=== PATIENT | male | born 1970 | race Caucasian/White ===

== ENCOUNTER 2018-05-14 14:04 | Inpatient (IN) | payer OTHER ==
[~2018-05-14] VITALS: Ht 177.8 cm; Wt 183.9 kg
[2018-05-14] MEDS ORDERED: OMEPRAZOLE MAGN20 MG PO (14:23)
[2018-05-14] MEDS ORDERED: LISI20 PO (14:23)
[2018-05-14] MEDS ORDERED: BUPR75 PO (14:23)
[2018-05-14 15:28] LABS: Source, Urine Clean Catch
[2018-05-14 15:33] LABS: Bilirubin, Urine Neg (Neg); Blood, Urine 1+ (Neg); Glucose Qualitative, Urine Neg (Neg); Ketones, Urine Neg (Neg); Leukocyte Esterase, Urine 1+ (Neg); Nitrite, Urine Neg (Neg); Protein, Urine 1+ (Neg); Specific Gravity, Urine 1.015 (1.003-1.022); Urobilinogen, Urine 1+ (Normal)
[2018-05-14 15:56] LABS: Appearance, Urine Clear (Clear); Color, Urine Yellow (P-Yellow)
[2018-05-14 15:58] LABS: Bacteria Few /hpf; Squamous Epithelial Cells Rare /hpf (Few)
--- NOTE | 2018-05-15 04:05 | NUR ---
SHIFT SUMMARY PT HAS RESTED MOST OF THE NIGHT, AND HAS DENIED NEEDS. CELLULITIS TO BLE. LEFT LEG MORE SWOLLEN THAN RIGHT. BOTH LEGS OUTLINE WITH SHARPIE. LEGS WITH SCATTERED SCABS, BLISTERS THAT APPEARS TO HAVE CRUSTED OVER. NO DRAINAGE PRESENT. PICTURES IN CHART. IV ABX INFUSED PER ORDERS. NS INFUSING X1 LITER AT THIS TIME. PT INDEPEDENT IN THE ROOM. NO ACUTE CHANGES. WILL CONTINUE TO MONITOR AND REPORT TO ONCOMING RN.
[2018-05-15 05:46] LABS: BASOPHILS ABSOLUTE AUTO 0.04 K/mm3 (0.00-0.23); BASOPHILS PERCENT AUTO 0 % (0-2); EOSINOPHILS ABSOLUTE AUTO 0.04 K/mm3 (0.00-0.68); EOSINOPHILS PERCENT AUTO 0 % (0-6); Hematocrit 39.5 % (37.0-53.0); Hemoglobin 12.5 g/dL (13.5-17.5); IMMATURE GRAN ABSOLUTE AUTO 0.13 K/mm3 (0.00-0.10); IMMATURE GRAN PERCENT AUTO 1 % (0-1); LYMPHOCYTES PERCENT AUTO 7 % (21-46); MONOCYTES ABSOLUTE AUTO 0.58 K/mm3 (0.16-1.47); MONOCYTES PERCENT AUTO 4 % (4-13); Mean Corpuscular HGB 27.3 pg (26.0-34.0); Mean Corpuscular HGB Conc 31.6 g/dL (31.5-36.5); Mean Corpuscular Volume 86 fL (80-100); Mean Platelet Volume 9.4 fL (9.1-12.4); NEUTROPHILS ABSOLUTE AUTO 11.92 K/mm3 (1.96-9.15); NEUTROPHILS PERCENT AUTO 87 % (41-73); Platelet Count 237 K/mm3 (150-400); RDW Coefficient Variation 15.6 % (11.7-14.2); RDW Standard Deviation 49.4 fL (35.1-46.3); Red Blood Cell Count 4.58 M/mm3 (4.30-5.90); White Blood Cell Count 13.71 K/mm3 (4.00-11.30)
[2018-05-15 06:14] LABS: Alanine Aminotransfer (ALT/SGP 34 U/L (12-78); Albumin/Globulin Ratio 0.7 (0.8-1.8); Alk Phos 55 U/L (50-136); Anion Gap 10 mmol/L (6-16); Aspartate Aminotrans (AST/SGOT 32 U/L (12-37); Bilirubin, Total 0.4 mg/dL (0.1-1.0); Blood Urea Nitrogen 15 mg/dL (8-24); Bun/Creatinine Ratio 13.5 (12.0-20.0); CHOL/HDL RATIO 3.1; CO2, Blood 23 mmol/L (21-32); Calcium, Blood 8.1 mg/dL (8.5-10.1); Chloride, Blood 106 mmol/L (98-108); Cholesterol 118 mg/dL (50-200); Creatinine, Blood 1.11 mg/dL (0.60-1.20); Globulin, Blood 4.2 g/dL (2.2-4.0); Glomerular Filtration Rate >60 (60-); Glucose, Blood 121 mg/dL (70-99); HDL Cholesterol 38 mg/dL (>39); LDL/HDL RATIO 1.3; Low Density Lipoprotein Chol 50 mg/dL (0-110); Magnesium, Blood 2.1 mg/dL (1.6-2.4); Potassium, Blood 4.5 mmol/L (3.5-5.5); Sodium, Blood 139 mmol/L (136-145); Total Protein, Blood 7.2 g/dL (6.4-8.2); Triglycerides 148 mg/dL (30-160); Very Low Density Lipoprot Chol 29 mg/dL (6-32)
[2018-05-15 07:17] LABS: Thyroid Stimulating Hormone 0.756 uIU/mL (0.360-4.800)
--- NOTE | 2018-05-15 07:30 | NUR ---
PT PLEASANT COOP A/O DENIES PAIN. H/R REG, NO MURMER NOTED. PER TELE: S TACH AT 108. LUNGS CLEAR, RESP EASY, UNLABORED. ON R.A. BT X4 LAST BM TODAY. VOIDS PER BATHROOMM. INDEPENDANT . BED IN LOW POSITION, CALL LITE IN REACH, CALLS APPROP. LEGS RED, BLE. SWOLLEN. OT AIR.
--- NOTE | 2018-05-15 11:37 | NUR ---
Spiritual care and and advance directive education visit conducted. Patient said that he had no spiritual needs at this time and that he had an advance directive on [facility] at [facility] I discussed filling out a form for our medical records but patient was not interested, stating that the hospital can just look it up.
[2018-05-15 17:45] LABS: Vancomycin, Trough 15.8 ug/mL (5.0-10.0)
--- NOTE | 2018-05-15 18:42 | NUR ---
PT PLEASANT TODDAY, NO C/O PAIN. LEGS REMAIN SWOLLEN AND RED. IV MEDS ADMIN. AMBULATES SELF TO BATHROOM PRN. LIGHT FEVERS TREATED WITH TYLENOL. NO FAMILY SEEN TODAY. BED IN LOW POSITION, CALL LITE IN REACH, CALLS APPROP
--- NOTE | 2018-05-16 04:10 | NUR ---
SHIFT SUMMARY PT EXPERIENCES SOB W/EXERTION. HE IS ON 3 1/2 LPM VIA NC AND RECEIVES RESPIRATORY TREATMENTS. HE DENIES PAIN AND IS PLEASANT, FOLLOWS DIRECTIONS. A BOWEL MOVEMENT IS CHARTED FOR YESTERDAY, YET HE REQUESTS STOOL SOFTENERS FOR THIS MORNING. I WILL PASS THIS ON TO THE DAY NURSE. NO REMARKABLE CHANGES. HE RECEIVED DIALYSIS ON 05/14. HE DOES CALL APPROPRIATELY. HE IS A&O X4
--- NOTE | 2018-05-16 04:21 | NUR ---
SHIFT SUMMARY PT IS A&O X4, INDEPENDENT IN ROOM. MORBIDLY OBESE. HE IS ON TELE - RUNS TACHY. HE HAS BEEN NUMB IN HIS FEET FOR 2 WEEKS BUT DENIES PAIN. HE WAS ADMITTED FOR SEPSIS FROM CELLULITIS IN HIS BLE. HE IS ON VANCO IV. HIS LUNGS ARE CLEAR ON RA. HE HAS BEEN RUNNING LIGHT FEVERS. PT HAS A HX OF SLEEP APNEA, HTN, AND PTSD. FOLLOWS INSTRUCTIONS, PLEASANT DEMEANOR.
[2018-05-16 05:11] LABS: BASOPHILS ABSOLUTE AUTO 0.07 K/mm3 (0.00-0.23); BASOPHILS PERCENT AUTO 1 % (0-2); EOSINOPHILS ABSOLUTE AUTO 0.33 K/mm3 (0.00-0.68); EOSINOPHILS PERCENT AUTO 3 % (0-6); Hematocrit 34.1 % (37.0-53.0); Hemoglobin 10.7 g/dL (13.5-17.5); IMMATURE GRAN ABSOLUTE AUTO 0.14 K/mm3 (0.00-0.10); IMMATURE GRAN PERCENT AUTO 1 % (0-1); LYMPHOCYTES ABSOLUTE AUTO 1.55 K/mm3 (0.84-5.20); LYMPHOCYTES PERCENT AUTO 12 % (21-46); MONOCYTES ABSOLUTE AUTO 0.77 K/mm3 (0.16-1.47); MONOCYTES PERCENT AUTO 6 % (4-13); Mean Corpuscular HGB Conc 31.4 g/dL (31.5-36.5); Mean Corpuscular Volume 86 fL (80-100); Mean Platelet Volume 9.3 fL (9.1-12.4); NEUTROPHILS ABSOLUTE AUTO 9.99 K/mm3 (1.96-9.15); NEUTROPHILS PERCENT AUTO 78 % (41-73); Platelet Count 262 K/mm3 (150-400); RDW Coefficient Variation 15.5 % (11.7-14.2); RDW Standard Deviation 49.1 fL (35.1-46.3); Red Blood Cell Count 3.96 M/mm3 (4.30-5.90); White Blood Cell Count 12.85 K/mm3 (4.00-11.30)
[2018-05-16 05:26] LABS: Anion Gap 7 mmol/L (6-16); Blood Urea Nitrogen 12 mg/dL (8-24); Bun/Creatinine Ratio 12.2 (12.0-20.0); CO2, Blood 25 mmol/L (21-32); Calcium, Blood 8.2 mg/dL (8.5-10.1); Chloride, Blood 107 mmol/L (98-108); Creatinine, Blood 0.99 mg/dL (0.60-1.20); Glomerular Filtration Rate >60 (60-); Glucose, Blood 102 mg/dL (70-99); Potassium, Blood 3.8 mmol/L (3.5-5.5); Sodium, Blood 139 mmol/L (136-145)
[2018-05-16 17:57] LABS: Vancomycin, Trough 21.3 ug/mL (5.0-10.0)
--- NOTE | 2018-05-16 19:30 | NUR ---
SHIFT SUMMARY- PT HAS HAD NO ACUTE CHANGES T/O THE SHIFT. NO C/O PAIN. BP SLIGHTLY ELEVATED THIS EVENING PT HAS SCHEDULED METOPROLOL. TACHY ON TELE. PT INDEPENDENT IN THE ROOM.
[2018-05-17 04:46] LABS: BASOPHILS ABSOLUTE AUTO 0.06 K/mm3 (0.00-0.23); BASOPHILS PERCENT AUTO 1 % (0-2); EOSINOPHILS ABSOLUTE AUTO 0.55 K/mm3 (0.00-0.68); EOSINOPHILS PERCENT AUTO 5 % (0-6); Hematocrit 34.7 % (37.0-53.0); Hemoglobin 10.6 g/dL (13.5-17.5); IMMATURE GRAN ABSOLUTE AUTO 0.19 K/mm3 (0.00-0.10); IMMATURE GRAN PERCENT AUTO 2 % (0-1); LYMPHOCYTES ABSOLUTE AUTO 1.54 K/mm3 (0.84-5.20); LYMPHOCYTES PERCENT AUTO 14 % (21-46); MONOCYTES ABSOLUTE AUTO 0.75 K/mm3 (0.16-1.47); MONOCYTES PERCENT AUTO 7 % (4-13); Mean Corpuscular HGB 26.9 pg (26.0-34.0); Mean Corpuscular HGB Conc 30.5 g/dL (31.5-36.5); Mean Corpuscular Volume 88 fL (80-100); Mean Platelet Volume 9.4 fL (9.1-12.4); NEUTROPHILS ABSOLUTE AUTO 7.79 K/mm3 (1.96-9.15); NEUTROPHILS PERCENT AUTO 72 % (41-73); Platelet Count 268 K/mm3 (150-400); RDW Coefficient Variation 15.1 % (11.7-14.2); RDW Standard Deviation 48.6 fL (35.1-46.3); Red Blood Cell Count 3.94 M/mm3 (4.30-5.90); White Blood Cell Count 10.88 K/mm3 (4.00-11.30)
[2018-05-17 05:06] LABS: Anion Gap 9 mmol/L (6-16); Blood Urea Nitrogen 16 mg/dL (8-24); Bun/Creatinine Ratio 16.6 (12.0-20.0); CO2, Blood 23 mmol/L (21-32); Calcium, Blood 8.3 mg/dL (8.5-10.1); Chloride, Blood 107 mmol/L (98-108); Creatinine, Blood 0.97 mg/dL (0.60-1.20); Glomerular Filtration Rate >60 (60-); Glucose, Blood 97 mg/dL (70-99); Potassium, Blood 3.6 mmol/L (3.5-5.5); Sodium, Blood 139 mmol/L (136-145)
--- NOTE | 2018-05-17 05:39 | NUR ---
SHIFT SUMMARY PT ADMITTED FOR SEPSIS CAUSED BY BLE CELLULITIS. TODAY THE PT STATED HE FELT HIS RT LEG WAS IMPROVING. HE STATED HIS LEFT LEG SEEMS THE SAME. ADMINISTERED SECOND DOSE OF TORADOL. PT DENIED PAIN. HE HAS TWO PATENT IV'S, ONE IN EACH AC. EARLIER IN SHIFT A HIGH BP WAS RECORDED, I MYSELF DID USE A NEW BP CUFF TO RE-TAKE HIS BP AND NOTED A LOWER MORE ACCEPTABLE VALUE. NO OTHER CHANGES THROUGHOUT SHIFT.
--- NOTE | 2018-05-17 19:42 | NUR ---
SHIFT SUMMARY- PT HAD SOME NOTABLE SWELLING IN THE LUE THIS EVENING, CALLED DR BRICEÑO, NEW ORDER FOR D-DIMER RECIEVED ORDERED STAT, LEVEL CAME BACK ELEVATED. NO HEAT OR REDNESS NOTED AT THIS TIME. LATER NOTED SOME REDNESS IN THE FOREARM AND UP INTO THE UPPER ARM. OUTLINED THE RED HOT AREA WITH MARKER AND CALLED DR BRICEÑO AGAIN, NEW ORDER FOR VL VENOUS STUDY ON THAT ARM TO R/O DVT. PRELIMINARY REPORT REVEALED NEGATIVE FOR DVT, TWO DIFFERENT AREAS OF SVT PRESENT IN THE UPPER ARM. IV IN THAT ARM HAD BEEN DC'D PRIOR TO THE STUDY. MADE PT NO BP IN THE LEFT ARM, NEW ORDER FOR ASPERCREAM QID RECIEVED. PT STILL HAS NO C/O PAIN. SCHEDULED TORADOL GIVEN FOR INFLAMATION, PT RECIEVING LOVENOX FOR DVT PROFILAXIS. POSSIBLE COAG STUDY FOR TOMORROW AND POSSIBLY OTHER IMAGES, PT IS AWARE. IV ABX GIVEN IN THE OTHER ARM. PT IS HARD TO GET A LINE IN SO CONSULTED THE IMAGING CENTER MANAGER MEGAN OK TO LEAVE IV IN, PATENT AND DRAWS WELL. BEDSIDE REPORT COMPLETE WITH NGA VINES.
--- NOTE | 2018-05-18 04:58 | NUR ---
SHIFT SUMMARY FULL COAGULATION PANEL TO BE DONE BY LAB TODAY, AWAITING RESULTS. YESTERDAY THE PT HAD AN ELEVATED D-DIMER AND 2 SUPERFICIAL CLOTS DISCOVERED IN THE LEFT UPPER ARM. NO BP'S IN RELL. PT DID NOT COMPLAIN OF PAIN. PT COOPERATIVE WITH CARE. A&O X4, INDEPENDENT IN ROOM. MORBIDLY OBESE. CELULITIS OF BLE. ULTRASOUND OF THE LEGS PERFORMED YESTERDAY WAS UNCLEAR, AWAITING FURTHER ORDERS.
[2018-05-18 08:17] LABS: BASOPHILS ABSOLUTE AUTO 0.03 K/mm3 (0.00-0.23); BASOPHILS PERCENT AUTO 0 % (0-2); EOSINOPHILS ABSOLUTE AUTO 0.53 K/mm3 (0.00-0.68); EOSINOPHILS PERCENT AUTO 5 % (0-6); Hematocrit 36.6 % (37.0-53.0); Hemoglobin 11.1 g/dL (13.5-17.5); IMMATURE GRAN ABSOLUTE AUTO 0.49 K/mm3 (0.00-0.10); IMMATURE GRAN PERCENT AUTO 4 % (0-1); LYMPHOCYTES ABSOLUTE AUTO 1.42 K/mm3 (0.84-5.20); LYMPHOCYTES PERCENT AUTO 12 % (21-46); MONOCYTES PERCENT AUTO 7 % (4-13); Mean Corpuscular HGB 26.9 pg (26.0-34.0); Mean Corpuscular HGB Conc 30.3 g/dL (31.5-36.5); Mean Corpuscular Volume 89 fL (80-100); NEUTROPHILS ABSOLUTE AUTO 8.17 K/mm3 (1.96-9.15); NEUTROPHILS PERCENT AUTO 71 % (41-73); NRBC ABSOLUTE 0.02 K/mm3 (0.00-0.02); NRBC Auto 0.2 /100 WBC (0.0-0.2); Platelet Count 296 K/mm3 (150-400); RDW Coefficient Variation 15.1 % (11.7-14.2); RDW Standard Deviation 49.6 fL (35.1-46.3); Red Blood Cell Count 4.13 M/mm3 (4.30-5.90); White Blood Cell Count 11.44 K/mm3 (4.00-11.30)
[2018-05-18 08:45] LABS: Vancomycin, Trough 14.7 ug/mL (5.0-10.0)
[2018-05-18 08:54] LABS: Alanine Aminotransfer (ALT/SGP 85 U/L (12-78); Albumin, Blood 2.6 g/dL (3.4-5.0); Albumin/Globulin Ratio 0.6 (0.8-1.8); Alk Phos 73 U/L (50-136); Anion Gap 10 mmol/L (6-16); Aspartate Aminotrans (AST/SGOT 40 U/L (12-37); Bilirubin, Total 0.3 mg/dL (0.1-1.0); Blood Urea Nitrogen 13 mg/dL (8-24); Bun/Creatinine Ratio 14.2 (12.0-20.0); CO2, Blood 22 mmol/L (21-32); Calcium, Blood 8.1 mg/dL (8.5-10.1); Chloride, Blood 109 mmol/L (98-108); Creatinine, Blood 0.92 mg/dL (0.60-1.20); Globulin, Blood 4.4 g/dL (2.2-4.0); Glomerular Filtration Rate >60 (60-); Glucose, Blood 92 mg/dL (70-99); Sodium, Blood 141 mmol/L (136-145)
--- NOTE | 2018-05-18 12:54 | NUR ---
Rd Lab Technician Note Pt gave permission for Symone BlissIoana to care for him on 05/19/18.
--- NOTE | 2018-05-18 16:57 | NUR ---
PATIENT A/OX4, UP INDEPENDENTLY IN ROOM. VSS THIS SHIFT. POWERGLIDE PLACED TO R UPPER ARM TODAY, DRAWS WELL. HARMAN CELLULITS IMPROVING. SUPERFICIAL CLOTS TO L WRIST, NO B/P ON L ARM. B/P'S BEING TAKEN ON R WRIST. LUNGS CLEAR/DIM, ON RA. TOLERATING REGULAR DIET. CALM AND COOPERATIVE WITH CARE. CALLS APPROPRIATELY FOR ASSISTANCE.
--- NOTE | 2018-05-19 04:28 | NUR ---
HAND HARDENER SUMMARY NO ACUTE CHANGES THIS SHIFT. PT AAOX4 AND INDEPENDENT IN HIS ROOM. PT REPORTS REDNESS AND SWELLING OF HIS BLE IS IMPROVING. PT DENIES PAIN BUT IS RECIEVING SCHEDULED TORADOL TO HELP WITH INFLAMMATION. ALSO CONTINUED ON Q6 ABX. VSS, WILL CONTINUE TO MONITOR.
[2018-05-19 05:49] LABS: BASOPHILS ABSOLUTE AUTO 0.12 K/mm3 (0.00-0.23); BASOPHILS PERCENT AUTO 1 % (0-2); EOSINOPHILS ABSOLUTE AUTO 0.52 K/mm3 (0.00-0.68); EOSINOPHILS PERCENT AUTO 4 % (0-6); Hematocrit 36.7 % (37.0-53.0); Hemoglobin 11.5 g/dL (13.5-17.5); IMMATURE GRAN ABSOLUTE AUTO 0.87 K/mm3 (0.00-0.10); IMMATURE GRAN PERCENT AUTO 6 % (0-1); LYMPHOCYTES ABSOLUTE AUTO 2.03 K/mm3 (0.84-5.20); LYMPHOCYTES PERCENT AUTO 15 % (21-46); MONOCYTES ABSOLUTE AUTO 0.68 K/mm3 (0.16-1.47); MONOCYTES PERCENT AUTO 5 % (4-13); Mean Corpuscular HGB 26.7 pg (26.0-34.0); Mean Corpuscular HGB Conc 31.3 g/dL (31.5-36.5); Mean Corpuscular Volume 85 fL (80-100); Mean Platelet Volume 8.9 fL (9.1-12.4); NEUTROPHILS ABSOLUTE AUTO 9.57 K/mm3 (1.96-9.15); NEUTROPHILS PERCENT AUTO 69 % (41-73); NRBC ABSOLUTE 0.03 K/mm3 (0.00-0.02); NRBC Auto 0.2 /100 WBC (0.0-0.2); Platelet Count 348 K/mm3 (150-400); RDW Coefficient Variation 14.9 % (11.7-14.2); RDW Standard Deviation 46.5 fL (35.1-46.3); Red Blood Cell Count 4.31 M/mm3 (4.30-5.90); White Blood Cell Count 13.79 K/mm3 (4.00-11.30)
[2018-05-19 06:07] LABS: BAND PERCENT MAN 2 % (0-8); BASOPHILS ABSOLUTE MAN 0.13 K/mm3 (0.00-0.23); BASOPHILS PERCENT MAN 1 % (0-2); EOSINOPHILS ABSOLUTE MAN 0.41 K/mm3 (0.00-0.68); EOSINOPHILS PERCENT MAN 3 % (0-6); LYMPHOCYTES ABSOLUTE MAN 1.93 K/mm3 (0.84-5.20); LYMPHOCYTES PERCENT MAN 14 % (21-46); METAMYELOCYTE ABSOLUTE MAN 0.27 K/mm3 (0.00-0.00); METAMYELOCYTE PERCENT MAN 2 % (0-0); MONOCYTES ABSOLUTE MAN 0.96 K/mm3 (0.16-1.47); MONOCYTES PERCENT MAN 7 % (4-13); NEUTROPHILS ABSOLUTE MAN 10.06 K/mm3 (1.96-9.15); SEG NEUTROPHILS PERCENT MAN 71 % (41-73); TOTAL CELLS COUNTED 100
[2018-05-19 06:13] LABS: Alanine Aminotransfer (ALT/SGP 86 U/L (12-78); Albumin, Blood 2.7 g/dL (3.4-5.0); Albumin/Globulin Ratio 0.6 (0.8-1.8); Alk Phos 82 U/L (50-136); Anion Gap 7 mmol/L (6-16); Aspartate Aminotrans (AST/SGOT 33 U/L (12-37); Bilirubin, Total 0.7 mg/dL (0.1-1.0); Blood Urea Nitrogen 14 mg/dL (8-24); Bun/Creatinine Ratio 15.1 (12.0-20.0); CO2, Blood 26 mmol/L (21-32); Calcium, Blood 8.3 mg/dL (8.5-10.1); Chloride, Blood 105 mmol/L (98-108); Creatinine, Blood 0.93 mg/dL (0.60-1.20); Globulin, Blood 4.8 g/dL (2.2-4.0); Glomerular Filtration Rate >60 (60-); Glucose, Blood 100 mg/dL (70-99); Potassium, Blood 4.2 mmol/L (3.5-5.5); Sodium, Blood 138 mmol/L (136-145); Total Protein, Blood 7.5 g/dL (6.4-8.2)
[2018-05-19] MEDS ORDERED: Prinivil10 MG PO (11:48)
[2018-05-19] MEDS ORDERED: ACET325 PO (11:49)
[2018-05-19] MEDS ORDERED: Biscolax10 MG PR (11:51)
[2018-05-19] MEDS ORDERED: FURO20 PO (11:52)
[2018-05-19] MEDS ORDERED: CEPH500 PO (11:52)
[2018-05-19] MEDS ORDERED: METO25 PO (11:53)
[2018-05-19] MEDS ORDERED: ONDA4ODT PO (11:55)
[2018-05-19] MEDS ORDERED: Aspercreme 1035.4 GM TOP (11:56)
[2018-05-19] MEDS ORDERED: SACC250C PO (11:57)
--- NOTE | 2018-05-19 13:45 | NUR ---
PATIENT D/C'D TO HOME [facility]. [facility] D/C INSTRUCTIONS AND EDUCATION DISCUSSED WITH PATIENT AND COPY PROVIDED. PATIENT DENIES ANY FURTHER QUESTIONS OR CONCERNS.
== END 2018-05-19 13:35 | disposition home or self-care (01) | DRG 872 ==
LOC: ER 14:04 → MEDS 15:51
PROVIDERS: Physician Assistant; ADMIT Internal Medicine
DX: A41.9 Sepsis, unspecified organism (principal); L03.115 Cellulitis of right lower limb; Z68.44 Body mass index [BMI] 60.0-69.9, adult; E66.01 Morbid (severe) obesity due to excess calories; I10 Essential (primary) hypertension; F43.10 Post-traumatic stress disorder, unspecified; Z87.891 Personal history of nicotine dependence; Z79.899 Other long term (current) drug therapy
CPT/HCPCS: 36415; 80048; 80053; 80061; 80202; 81001; 82565; 83605; 83735; 84443; 85025; 85379; 87040; 87086; 93971; 99285; C1751; J0690; J0696; J1650; J1885; J1940; J3370; J7030; J7050

== ENCOUNTER 2022-03-20 12:26 | Emergency (ER) | payer OTHER ==
[~2022-03-20] VITALS: Ht 177.8 cm; Wt 208.7 kg
[~2022-03-20 12:26] MED LIST: ACET325 PO; Aspercreme 1035.4 GM TOP; BUPR75 PO; Biscolax10 MG PR; CEPH500 PO; FURO20 PO; LISI20 PO; METO25 PO; OMEPRAZOLE MAGN20 MG PO; ONDA4ODT PO; Prinivil10 MG PO; SACC250C PO
[2022-03-20 14:11] LABS: BASOPHILS ABSOLUTE AUTO 0.01 K/mm3 (0.00-0.23); BASOPHILS PERCENT AUTO 0 % (0-2); EOSINOPHILS ABSOLUTE AUTO 0.03 K/mm3 (0.00-0.68); EOSINOPHILS PERCENT AUTO 1 % (0-6); Hematocrit 41.1 % (37.0-53.0); Hemoglobin 13.2 g/dL (13.5-17.5); IMMATURE GRAN ABSOLUTE AUTO 0.04 K/mm3 (0.00-0.10); IMMATURE GRAN PERCENT AUTO 1 % (0-1); LYMPHOCYTES ABSOLUTE AUTO 1.24 K/mm3 (0.84-5.20); LYMPHOCYTES PERCENT AUTO 23 % (21-46); MONOCYTES ABSOLUTE AUTO 0.33 K/mm3 (0.16-1.47); MONOCYTES PERCENT AUTO 6 % (4-13); Mean Corpuscular HGB 26.5 pg (26.0-34.0); Mean Corpuscular HGB Conc 32.1 g/dL (31.5-36.5); Mean Corpuscular Volume 82 fL (80-100); NEUTROPHILS ABSOLUTE AUTO 3.82 K/mm3 (1.96-9.15); NEUTROPHILS PERCENT AUTO 70 % (41-73); Platelet Count 206 K/mm3 (150-400); RDW Coefficient Variation 14.9 % (11.7-14.2); RDW Standard Deviation 44.8 fL (35.1-46.3); Red Blood Cell Count 4.99 M/mm3 (4.30-5.90); White Blood Cell Count 5.47 K/mm3 (4.00-11.30)
[2022-03-20 14:30] LABS: Albumin, Blood 3.1 g/dL (3.4-5.0); Albumin/Globulin Ratio 0.8 (0.8-1.8); Bilirubin, Total 0.3 mg/dL (0.1-1.0); Bun/Creatinine Ratio 12.8 (12.0-20.0); Calcium, Blood 8.1 mg/dL (8.5-10.1); Creatinine, Blood 0.94 mg/dL (0.60-1.20); Globulin, Blood 3.9 g/dL (2.2-4.0); Potassium, Blood 3.7 mmol/L (3.5-5.5)
[2022-03-20 15:01] LABS: Influenza B, PCR NEGATIVE (NEGATIVE); Resp Syncytial Virus, PCR NEGATIVE (NEGATIVE); SARS-Cov-2 (COVID-19) PCR, MMC NEGATIVE (NEGATIVE)
[2022-03-20 15:05] LABS: Influenza A, PCR POSITIVE (NEGATIVE)
== END 2022-03-20 16:00 | disposition home or self-care (01) ==
LOC: ER 12:26
PROVIDERS: Emergency Medicine
DX: J45.901 Unspecified asthma with (acute) exacerbation (principal); I10 Essential (primary) hypertension; E78.5 Hyperlipidemia, unspecified; G47.33 Obstructive sleep apnea (adult) (pediatric); E66.01 Morbid (severe) obesity due to excess calories; Z79.899 Other long term (current) drug therapy; Z87.891 Personal history of nicotine dependence; Z68.44 Body mass index [BMI] 60.0-69.9, adult
CPT/HCPCS: 0241U; 71046; 80053; 83880; 84484; 85025; 93005; 93010; 94640; 94664; J1100